=== PATIENT | male | born 2005 | race Caucasian/White ===

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

== ENCOUNTER 2023-04-07 08:12 | Emergency (ER) | payer OTHER, SELFPAY ==
[2023-04-07 08:25] VITALS: BP 122/86; PULSE 71; RESP 18; TEMP 37.1; O2SAT 100; BMI 28.2
--- NOTE | 2023-04-07 08:44 | EXP.UTC ---
Discharge Plan Disposition Patient Disposition: Home, Self-Care Condition: Good Prescriptions Prescriptions: New azithromycin [Zithromax Z-Vadim] 250 mg tablet See Rx Instructions .ROUTE .COMPLEX 5 Days Qty: 6 0RF Rx Instructions: For 250 mg dose pack: take 500 mg today (day 1), then 250 mg for 4 days (days 2-5) methylprednisolone [Medrol (Vadim)] 4 mg tablets,dose pack See Rx Instructions .Route .COMPLEX 6 Days Qty: 21 0RF Rx Instructions: taper pack; No Action fluticasone propionate 50 mcg/actuation spray,suspension 1 spray INTRANASAL DAILY 14 Days Qty: 1 2RF fexofenadine 180 MG tablet 180 mg PO DAILY amoxicillin-pot clavulanate 875-125 mg tablet 1 tab PO BID Qty: 20 0RF prednisone 20 mg tablet 20 mg PO BID Qty: 10 0RF Referrals Follow up/Referrals: Anne-Marie Guzman DO [Primary Care Provider] - See instructions Activity Restrictions/Add. Instructions Additional Instructions/Restrictions: *Monitor Temp, Over the counter Motrin or Tylenol as directed/as needed Tylenol every 4 hours and Motrin every 6 hours (as long as your family doctor has told you that you can take it) for fever or pain. and straight to ER if unable to lower temp less than 101.0 after medication given *Warm salt water gargles may help to soothe the throat *Throat Lozenges? *Warm fluids like tea with honey may help to soothe the throat? *Sleep elevated *Humidifier/Vaporizer Your throat swab was sent for culture. Those results are typically sent to your primary care. Be sure to follow up in 2-3 days with your family doctor/primary care physician if no improvement so they can review those result and treat if necessary. If you don?t have a primary care doctor, I recommend you get one but in the mean time, you will have to return to a walk in clinic Follow up IMMEDIATELY for new or worsening symptoms or no Noticeable improvement over the next 48-72 hours. 911 for difficulty breathing or swallowing Clinical Impressions Clinical Impression: Sinusitis Qualifiers: Sinusitis location: unspecified location Chronicity: unspecified Qualified Code(s): J32.9 - Chronic sinusitis, unspecified Instructions Patient Instructions: DI for Sinusitis, Sinusitis Discharge ED Provider: Janice Trinidad [facility] [place] HPI General Stated complaint: congestion, cough, h/a, bilateral ear pain Mode of Arrival: Ambulatory Source of Information: Patient Limitations: No Limitations Time Seen by Provider: 04/07/23 08:44 Description of Symptoms (Recalled from Triage Doc. by RN): PATIENT C/O CONGESTION, EAR PAIN, COUGH, HEADACHE, GREEN MUCOUS, AND FACIAL SWELLING FOR OVER A WEEK HEENT Symptoms (Recalled from RN notes): Yes Resp Symptoms (Recalled from RN notes): Yes Skin Symptoms (Recalled from RN notes): No MS Symptoms (Recalled from RN notes): No Functional Status (Recalled from RN notes): WNL History of Present Illness Provider Complaint: Patient states that he has been having sinus congestion and pressure, pain in both ears, headache, feeling like his face is swollen, and blowing out greenish colored mucous States today he wasnt feeling any better so he came in to get checked Related Data Home Medications Medication Instructions Recorded Confirmed fexofenadine 180 mg tablet 180 mg PO DAILY Allergy symptoms 02/07/20 02/07/20 Previous Rx's Medication Instructions Recorded fluticasone propionate 50 1 spray intranasal DAILY 14 days 02/29/20 mcg/actuation nasal #1 mL spray,suspension amoxicillin 875 mg-potassium 1 tab PO BID #20 tabs 12/31/21 clavulanate 125 mg tablet prednisone 20 mg tablet 20 mg PO BID #10 tabs 12/31/21 azithromycin 250 mg tablet See Rx Instructions PO .COMPLEX 5 04/07/23 (Zithromax Z-Vadim) days #6 tabs methylprednisolone 4 mg tablets in See Rx Instructions .Route 04/07/23 a dose pack (Medrol (Vadim)) .COMPLEX 6 days #21 tabs Allergies Allergy/AdvReac Type Severity
[2023-04-07 09:02] LABS: UTC Influenza A Antigen Negative (Negative); UTC Strep Screen (Rapid) Negative (Negative)
[2023-04-07 09:03] LABS: UTC Influenza B Antigen Negative (Negative)
[2023-04-07 09:12] VITALS: BP 122/86; PULSE 71; RESP 18; TEMP 37.1; O2SAT 100
== END 2023-04-07 09:15 | disposition home or self-care (01) ==
PROVIDERS: Emergency Provider Nurse Practitioner; PCP Pediatrics
DX: J01.90 Acute sinusitis, unspecified (principal); R51.9 Headache, unspecified; H92.03 Otalgia, bilateral; R05.9 Cough, unspecified; R09.81 Nasal congestion; R07.0 Pain in throat
CPT/HCPCS: 87804; 87880; 99212; 99214; G0463